=== PATIENT | female | born 1960 | race Caucasian/White ===

== ENCOUNTER 2016-10-24 15:32 | Observation (INO) | payer MEDICARE, OTHER ==
[~2016-10-24] VITALS: Ht 177.8 cm; Wt 49.9 kg
[~2016-10-24 15:32] MED LIST: ANTIVERT 25MG T25 MG PO; CATAPRES 0.1MG0.1 MG PO; COREG 12.5MG12.5 MG PO; LANTUS INS100 UTS/M1 SQ; LISINOPRIL20 MG PO; NEPRO CARB ST1000 ML PO; NEURONTIN 400400 MG PO; NORCO 5-325 TA1 EACH PO; NORVASC 5 MG TAB5 MG PO; PHOSLO 667 MG667 MG PO; PROCRIT10000 UNIT SC; QUESTRAN LIGHT 44 GM PO; RENVELA800 MG PO; VERAPAMIL ER120 M1 PO
[2016-10-24 16:42] LABS: HEMOGLOBIN 10.7 gm/dl (12.3-15.3); RED BLOOD COUNT 3.7 M/UL (4.00-5.10); WHITE BLOOD COUNT 5.7 K/UL (4.5-11.0)
[2016-10-24] MEDS ORDERED: LANTUS100 UNIT/1 SQ (23:23)
[2016-10-24] MEDS ORDERED: CATAPRES 0.1MG0.1 MG PO (23:23)
[2016-10-24] MEDS ORDERED: MECLIZINE HCL25 MG PO (23:30)
[2016-10-26 03:58] LABS: HEMOGLOBIN 9.3 gm/dl (12.3-15.3); WHITE BLOOD COUNT 6.5 K/UL (4.5-11.0)
[2016-10-26 04:01] LABS: RED BLOOD COUNT 3.24 M/UL (4.00-5.10)
[2016-10-26 09:57] LABS: HEMOGLOBIN 9.1 gm/dl (12.3-15.3); RED BLOOD COUNT 3.2 M/UL (4.00-5.10); WHITE BLOOD COUNT 5.7 K/UL (4.5-11.0)
[2016-10-27] MEDS ORDERED: ASPIR 8181 MG PO (10:12)
[2016-10-27] MEDS ORDERED: LIPITOR TAB 2020 MG PO (10:12)
[2016-10-27] MEDS ORDERED: PLAVIX 75 MG TA75 MG PO (10:16)
[2016-10-27] MEDS ORDERED: LISINOPRIL10 MG PO (10:17)
[2016-10-27] MEDS ORDERED: TOPROL XL25 MG PO (10:17)
[2016-10-27] MEDS ORDERED: NITROSTAT0.4 MG SL (10:20)
[2017-05-13] MEDS ORDERED: VOLTAREN100 GM TP (12:35)
[2017-05-17] MEDS ORDERED: LEVAQUIN250 MG PO (14:47)
== END 2016-10-27 11:50 | disposition home or self-care (01) ==
LOC: ER1 15:32 → ZEROF 20:08 → M/S 20:08 → CCU 10-25 20:39
PROVIDERS: Emergency Medicine; Internal Medicine; Internal Medicine Nephrology; ADMIT Hospitalist
DX: R07.9 Chest pain, unspecified (principal); E11.22 Type 2 diabetes mellitus with diabetic chronic kidney disease; I12.0 Hypertensive chronic kidney disease with stage 5 chronic kidney disease or end stage renal disease; N18.6 End stage renal disease; I25.10 Atherosclerotic heart disease of native coronary artery without angina pectoris; I25.2 Old myocardial infarction; Z87.891 Personal history of nicotine dependence; Z82.49 Family history of ischemic heart disease and other diseases of the circulatory system; Z80.0 Family history of malignant neoplasm of digestive organs; Z80.1 Family history of malignant neoplasm of trachea, bronchus and lung; Z88.8 Allergy status to other drugs, medicaments and biological substances; Z79.899 Other long term (current) drug therapy; Z99.2 Dependence on renal dialysis; Z90.49 Acquired absence of other specified parts of digestive tract; Z90.710 Acquired absence of both cervix and uterus; Z98.890 Other specified postprocedural states
CPT/HCPCS: 36415; 71010; 71250; 75625; 78452; 80048; 80053; 82550; 82553; 82962; 83605; 83735; 83874; 84132; 84484; 85025; 85027; 85347; 87040; 90935; 93005; 93017; 96374; 96375; 96376; 99285; A9502; C1725; C1769; C1874; C1887; C9600; G0257; G0378; J0360; J0461; J0583; J1644; J2250; J2405; J2785; J3010; J7030; J7040; Q9965

== ENCOUNTER 2016-11-30 05:49 | Inpatient (IN) | payer MEDICARE, OTHER ==
[~2016-11-30] VITALS: Ht 167.6 cm; Wt 51.7 kg
[~2016-11-30 05:49] MED LIST changes: +ASPIR 8181 MG PO; +LANTUS100 UNIT/1 SQ; +LIPITOR TAB 2020 MG PO; +LISINOPRIL10 MG PO; +MECLIZINE HCL25 MG PO; +NITROSTAT0.4 MG SL; +PLAVIX 75 MG TA75 MG PO; +TOPROL XL25 MG PO
[2016-11-30 06:50] LABS: HEMOGLOBIN 12.9 gm/dl (12.3-15.3); RED BLOOD COUNT 4.25 M/UL (4.00-5.10); WHITE BLOOD COUNT 10.2 K/UL (4.5-11.0)
[2016-11-30] MEDS ORDERED: NEURONTIN 400400 MG PO (14:39)
[2016-11-30] MEDS ORDERED: ZANAFLEX4 M1 PO (14:40)
[2016-11-30] MEDS ORDERED: ANTIVERT 25MG T25 MG PO (14:41)
[2016-11-30] MEDS ORDERED: CATAPRES 0.1MG0.1 MG PO (14:42)
[2016-11-30] MEDS ORDERED: FLEXERIL 10 MG10 MG PO (14:43)
[2016-11-30] MEDS ORDERED: PHENERGAN 25 MG25 M1 PO (14:43)
[2016-11-30] MEDS ORDERED: RENVELA800 MG PO (14:47)
[2016-12-01 05:17] LABS: WHITE BLOOD COUNT 9.4 K/UL (4.5-11.0)
[2016-12-01 05:18] LABS: HEMOGLOBIN 9.1 gm/dl (12.3-15.3); RED BLOOD COUNT 3.01 M/UL (4.00-5.10)
[2016-12-01 12:56] LABS: HEMOGLOBIN 9.6 gm/dl (12.3-15.3); RED BLOOD COUNT 3.18 M/UL (4.00-5.10); WHITE BLOOD COUNT 8.4 K/UL (4.5-11.0)
[2016-12-02 04:33] LABS: HEMOGLOBIN 9.4 gm/dl (12.3-15.3); RED BLOOD COUNT 3.14 M/UL (4.00-5.10); WHITE BLOOD COUNT 7.1 K/UL (4.5-11.0)
[2016-12-03 03:42] LABS: HEMOGLOBIN 10.4 gm/dl (12.3-15.3); RED BLOOD COUNT 3.45 M/UL (4.00-5.10); WHITE BLOOD COUNT 6.7 K/UL (4.5-11.0)
[2016-12-03] MEDS ORDERED: IMDUR ER TAB 3030 MG PO (16:35)
[2017-05-13] MEDS ORDERED: VOLTAREN100 GM TP (12:35)
[2017-05-17] MEDS ORDERED: LEVAQUIN250 MG PO (14:47)
== END 2016-12-03 17:40 | disposition home health service (06) | DRG 291 ==
LOC: ER1 05:49 → ZEROF 09:15 → PROG CARE 09:15
PROVIDERS: Family Medicine; Internal Medicine Nephrology; ADMIT Internal Medicine Infectious Disease
DX: I13.2 Hypertensive heart and chronic kidney disease with heart failure and with stage 5 chronic kidney disease, or end stage renal disease (principal); I50.33 Acute on chronic diastolic (congestive) heart failure; N18.6 End stage renal disease; J44.1 Chronic obstructive pulmonary disease with (acute) exacerbation; R07.9 Chest pain, unspecified; E11.22 Type 2 diabetes mellitus with diabetic chronic kidney disease; I25.10 Atherosclerotic heart disease of native coronary artery without angina pectoris; Z95.5 Presence of coronary angioplasty implant and graft; Z90.49 Acquired absence of other specified parts of digestive tract; Z90.710 Acquired absence of both cervix and uterus; Z88.5 Allergy status to narcotic agent; Z79.82 Long term (current) use of aspirin; Z79.02 Long term (current) use of antithrombotics/antiplatelets; Z79.4 Long term (current) use of insulin; Z79.899 Other long term (current) drug therapy; Z82.49 Family history of ischemic heart disease and other diseases of the circulatory system; Z80.0 Family history of malignant neoplasm of digestive organs; Z80.1 Family history of malignant neoplasm of trachea, bronchus and lung; Z80.42 Family history of malignant neoplasm of prostate; Z99.2 Dependence on renal dialysis; Z87.891 Personal history of nicotine dependence; E11.65 Type 2 diabetes mellitus with hyperglycemia; E11.21 Type 2 diabetes mellitus with diabetic nephropathy; D64.9 Anemia, unspecified; R74.8 Abnormal levels of other serum enzymes; I95.9 Hypotension, unspecified
CPT/HCPCS: 36415; 36600; 71010; 71020; 80048; 80053; 82550; 82553; 82607; 82728; 82803; 82962; 83540; 83550; 83690; 83735; 83874; 83880; 84100; 84484; 85025; 85027; 85610; 85730; 87040; 90935; 90937; 93005; 94640; 94660; 94664; 96374; 96375; 97116; 99291; J2930; J7030; Q4081

== ENCOUNTER 2017-01-02 14:46 | Inpatient (IN) | payer MEDICARE, OTHER ==
[~2017-01-02] VITALS: Ht 167.6 cm; Wt 50.3 kg
[~2017-01-02 14:46] MED LIST changes: +FLEXERIL 10 MG10 MG PO; +IMDUR ER TAB 3030 MG PO; +PHENERGAN 25 MG25 M1 PO; +ZANAFLEX4 M1 PO
[2017-01-02 15:31] LABS: HEMOGLOBIN 14.3 gm/dl (12.3-15.3); RED BLOOD COUNT 4.62 M/UL (4.00-5.10); WHITE BLOOD COUNT 6.1 K/UL (4.5-11.0)
[2017-01-02] MEDS ORDERED: ZANAFLEX 4 MG TA4 MG PO (21:45)
[2017-01-02] MEDS ORDERED: NEURONTIN 400400 MG PO (21:45)
[2017-01-02] MEDS ORDERED: ZANTAC 150 MG150 MG PO (21:45)
[2017-01-02] MEDS ORDERED: CATAPRES 0.1MG0.1 MG PO (21:46)
[2017-01-02] MEDS ORDERED: LIPITOR TAB 2020 MG PO (21:46)
[2017-01-02] MEDS ORDERED: PLAVIX 75 MG TA75 MG PO (21:46)
[2017-01-02] MEDS ORDERED: LISINOPRIL20 MG PO (21:47)
[2017-01-02] MEDS ORDERED: MECLIZINE HCL25 MG PO (21:47)
[2017-01-02] MEDS ORDERED: METOPROLOL SUCC25 MG PO (21:47)
[2017-01-03 06:07] LABS: WHITE BLOOD COUNT 5.6 K/UL (4.5-11.0)
[2017-01-03 15:34] LABS: HEMOGLOBIN 10.8 gm/dl (12.3-15.3)
[2017-01-04 03:30] LABS: HEMOGLOBIN 11.4 gm/dl (12.3-15.3); RED BLOOD COUNT 3.73 M/UL (4.00-5.10)
[2017-01-04 03:38] LABS: WHITE BLOOD COUNT 7.1 K/UL (4.5-11.0)
[2017-01-06 03:55] LABS: HEMOGLOBIN 10.6 gm/dl (12.3-15.3); RED BLOOD COUNT 3.48 M/UL (4.00-5.10)
[2017-01-08 12:16] LABS: HEMOGLOBIN 11.1 gm/dl (12.3-15.3); RED BLOOD COUNT 3.62 M/UL (4.00-5.10); WHITE BLOOD COUNT 6.8 K/UL (4.5-11.0)
[2017-01-08] MEDS ORDERED: RENVELA800 MG PO (13:40)
[2017-01-08] MEDS ORDERED: NORVASC 5 MG TAB5 MG PO (13:40)
[2017-01-08] MEDS ORDERED: LANTUS100 UNIT/1 SQ ×2 (13:45→13:48)
[2017-01-08] MEDS ORDERED: VENTOLIN/PROVE0.5 ML INH (13:47)
[2017-01-08] MEDS ORDERED: PHENERGAN 12.12.5 M1 PO (13:48)
[2017-01-08 22:14] LABS: HEMOGLOBIN 10.1 gm/dl (12.3-15.3); RED BLOOD COUNT 3.3 M/UL (4.00-5.10); WHITE BLOOD COUNT 5.4 K/UL (4.5-11.0)
--- NOTE | 2017-01-09 03:40 | NUR ---
2136- JUST TECH WAS GOING TO CHECK PTS BS FAMILY MEMBER MET HER IN HALLWAY AND STATED THAT PT FELT SWEATY. UPON ENTERING ROOM PT WAS UNRESPONSIVE TO AROUSAL AT WHICH TIME BS WAS CHECKED AND FOUND TO BE 23. 2 AMPS OF D50 WAS GAVE AT WHICH TIME PT WAS STILL ONLY RESPONSIVE TO STERNAL RUB WHICH TRIGGERED PT TO BE COMBATIVE. RECHECKS OF HER BS AT 2147 WAS 494,AT 2148 BS WAS 462, BS AT 2201 WAS 351, BS AT 2344 WAS 212, BS AT 0055 WAS 159, BS AT 0219 WAS 155 EVEN AFTER EATING A SANDWICH AND SMALL POP, BS AT 0330 WAS 184.SHERIFF SERGEANT CALLED AND MD AT BEDSIDE AROUND 2147 AND WROTE NEW ORDER FOR STAT BS BY LAB TO CONFIRM ACCURACY OF MACHINE,AFTER WHICH WROTE ORDERS FOR EKG,CBC, BMP, CT OF HEAD,HOLD CORRECTION UNTIL WE GET STEADY READING, NO COVERAGE THEN UNLESS BS IF OVER 200. ORDERS ALSO TO DECREASE LEVEMIR TO 15 UNITS SQ DAILY WITH MEAL, D/C PRANDIAL DOSE. BS CHECKS Q 1 HR FOR 4 HRS. AT 2344 PT TALKING TO ME AND ASKING WHAT HAD HAPPENED. PT AT THAT TIME WAS STILL DROWSY AND KNEW NAME AND BD BUT DID NOT KNOW WHERE SHE WAS AT AND STATED THAT SHE WAS AT DIALYSIS.
[2017-01-10 06:04] LABS: HEMOGLOBIN 10.9 gm/dl (12.3-15.3); RED BLOOD COUNT 3.61 M/UL (4.00-5.10); WHITE BLOOD COUNT 7.1 K/UL (4.5-11.0)
[2017-01-10] MEDS ORDERED: COZAAR100 MG PO (22:34)
[2017-01-10] MEDS ORDERED: NEPRO CARB ST1000 ML PO (22:35)
[2017-01-10] MEDS ORDERED: IMDUR ER TAB 3030 MG PO (22:35)
[2017-01-10] MEDS ORDERED: COREG 3.125M3.125 MG PO (22:36)
[2017-01-10] MEDS ORDERED: NORVASC 5 MG TAB5 MG PO (22:37)
[2017-01-10] MEDS ORDERED: ASPIR 8181 MG PO (22:37)
[2017-01-10] MEDS ORDERED: NOVOLOG 10100 UNITS/ SC (22:40)
[2017-05-13] MEDS ORDERED: VOLTAREN100 GM TP (12:35)
[2017-05-17] MEDS ORDERED: LEVAQUIN250 MG PO (14:47)
== END 2017-01-10 23:36 | disposition home or self-care (01) | DRG 682 ==
LOC: ER1 14:46 → ZEROF 18:47 → CCU 21:47 → M/S 01-05 08:30
PROVIDERS: Emergency Medicine; Hospitalist; Internal Medicine; Internal Medicine Nephrology; ADMIT Internal Medicine
PROC: 5A1D60Z (ICD-10-PCS; principal; 2017-01-06)
DX: N18.6 End stage renal disease (principal); I71.02 Dissection of abdominal aorta; G93.41 Metabolic encephalopathy; I13.2 Hypertensive heart and chronic kidney disease with heart failure and with stage 5 chronic kidney disease, or end stage renal disease; I50.32 Chronic diastolic (congestive) heart failure; N39.0 Urinary tract infection, site not specified; I16.0 Hypertensive urgency; Z99.2 Dependence on renal dialysis; Z87.891 Personal history of nicotine dependence; E10.22 Type 1 diabetes mellitus with diabetic chronic kidney disease; E10.649 Type 1 diabetes mellitus with hypoglycemia without coma; B96.20 Unspecified Escherichia coli [E. coli] as the cause of diseases classified elsewhere; I25.10 Atherosclerotic heart disease of native coronary artery without angina pectoris; J44.9 Chronic obstructive pulmonary disease, unspecified
CPT/HCPCS: ECHO; 36415; 70450; 70551; 71010; 71275; 80048; 80053; 80307; 82140; 82150; 82533; 82550; 82553; 82570; 82962; 83036; 83690; 83835; 83874; 84439; 84443; 84484; 85014; 85018; 85025; 85027; 85730; 87077; 87086; 87186; 90935; 90937; 93005; 93306; 94664; 97110; 97116; 97530; 99285; G0378; J0696; J1644; J2060; J2405; J7030; J7050; Q9963

== ENCOUNTER 2020-12-11 09:10 | Inpatient (IN) | payer MEDICARE, OTHER ==
[~2020-12-11] VITALS: Ht 167.6 cm; Wt 40.4 kg
[~2020-12-11 09:10] MED LIST changes: +AUGMENTIN 875-1 EACH PO; +BACTROBAN OINT22 GM EXT; +CARVEDILOL25 MG PO; +CLONIDINE1 EAC2 TD; +COMBIVENT0.074 GM/I INH; +COREG 25MG TAB25 MG PO; +COREG 3.125M3.125 MG PO; +COZAAR100 MG PO; +DOXYCYCLINE HY100 MG PO; +ECOTRIN81 MG PO; +FLONASE 0.05% N16 GM; +HYDRALAZINE HC100 MG PO; +HYDRALAZINE HCL25 MG PO; +HYDROCHLOROTHIA25 MG PO; +IPRAT-ALBUT 0.5-3 ML NEB; +KAOPECTATE262 MG/15 PO; +LEVAQUIN250 MG PO; +METOPROLOL SUCC25 MG PO; +NORVASC10 MG PO; +NOVOLOG 10100 UNITS/ SC; +PHENERGAN 12.12.5 M1 PO; +PROTONIX40 MG PO; +ROPINIROLE HCL0.5 MG PO; +TESSALON PERLE100 MG PO; +VENTOLIN/PROVE0.5 ML INH; +VIBRAMYCIN100 MG PO; +VOLTAREN100 GM TP; +ZANAFLEX 4 MG TA4 MG PO; +ZANTAC 150 MG150 MG PO; +ZOCOR10 MG PO
[2020-12-11] MEDS ORDERED: CLONIDINE HCL0.3 MG PO (09:47)
[2020-12-11 10:09] LABS: HEMOGLOBIN 10.5 gm/dl (12.3-15.3); RED BLOOD COUNT 3.61 M/UL (4.00-5.10); WHITE BLOOD COUNT 10.5 K/UL (4.5-11.0)
[2020-12-11] MEDS ORDERED: RENVELA800 MG PO (18:31)
[2020-12-11] MEDS ORDERED: IPRAT-ALBUT 0.5-3 ML NEB (20:15)
[2020-12-11] MEDS ORDERED: COZAAR100 MG PO (21:30)
[2020-12-11] MEDS ORDERED: BASAGLAR K100 UNIT/1 SQ (23:52)
[2020-12-12 02:52] LABS: HEMOGLOBIN 9.1 gm/dl (12.3-15.3)
[2020-12-12 02:58] LABS: RED BLOOD COUNT 3.14 M/UL (4.00-5.10)
[2020-12-13 04:24] LABS: RED BLOOD COUNT 3.45 M/UL (4.00-5.10); WHITE BLOOD COUNT 6.7 K/UL (4.5-11.0)
[2020-12-13] MEDS ORDERED: ROXANOL SO10 MG/5 ML PO (11:44)
[2020-12-13] MEDS ORDERED: ATIVAN0.5 MG PO (11:44)
[2020-12-14] MEDS ORDERED: ROPINIROLE HCL1 MG PO (16:59)
[2020-12-17 04:19] LABS: HEMOGLOBIN 10.3 gm/dl (12.3-15.3); RED BLOOD COUNT 3.59 M/UL (4.00-5.10); WHITE BLOOD COUNT 5.8 K/UL (4.5-11.0)
[2020-12-19] MEDS ORDERED: ATIVAN0.5 MG PO (13:25)
[2020-12-19] MEDS ORDERED: ROXANOL SO10 MG/5 ML PO (13:29)
--- NOTE | 2020-12-19 14:23 | NUR ---
REPORT TO [facility] CALLED AT 1344 ON 12/19/20. RN GIVEN REPORT AND AWARE OF PT CONDITION.
== END 2020-12-19 14:30 | DRG 180 ==
LOC: ER1 09:10 → CDU 12:04 → PROG CARE 12:04 → MED SURG 4 12:04 → PROG CARE 18:33 → MED SURG 4 12-12 18:31
PROVIDERS: Internal Medicine; Internal Medicine Nephrology; Internal Medicine Pulmonary Disease; Physician Assistant; ADMIT Internal Medicine
PROC: 5A1D70Z Performance of Urinary Filtration, Intermittent, Less than 6 Hours Per Day (ICD-10-PCS; principal; 2020-12-16)
DX: C34.90 Malignant neoplasm of unspecified part of unspecified bronchus or lung (principal); J18.9 Pneumonia, unspecified organism; Z20.822 Contact with and (suspected) exposure to COVID-19; J96.21 Acute and chronic respiratory failure with hypoxia; N18.6 End stage renal disease; Z51.5 Encounter for palliative care; Z66 Do not resuscitate; I50.43 Acute on chronic combined systolic (congestive) and diastolic (congestive) heart failure; G93.41 Metabolic encephalopathy; E43 Unspecified severe protein-calorie malnutrition; R64 Cachexia; J90 Pleural effusion, not elsewhere classified; I12.0 Hypertensive chronic kidney disease with stage 5 chronic kidney disease or end stage renal disease; N30.00 Acute cystitis without hematuria; Z68.1 Body mass index [BMI] 19.9 or less, adult; E86.0 Dehydration; F17.210 Nicotine dependence, cigarettes, uncomplicated; R11.0 Nausea; T40.425A Adverse effect of tramadol, initial encounter; I16.0 Hypertensive urgency; I25.10 Atherosclerotic heart disease of native coronary artery without angina pectoris; E87.6 Hypokalemia; Z96.642 Presence of left artificial hip joint; Z96.652 Presence of left artificial knee joint; D63.1 Anemia in chronic kidney disease; R53.81 Other malaise; J44.9 Chronic obstructive pulmonary disease, unspecified; Z99.2 Dependence on renal dialysis; Z85.43 Personal history of malignant neoplasm of ovary; Z95.5 Presence of coronary angioplasty implant and graft; Z86.73 Personal history of transient ischemic attack (TIA), and cerebral infarction without residual deficits; Z90.49 Acquired absence of other specified parts of digestive tract; Z90.710 Acquired absence of both cervix and uterus; Z88.6 Allergy status to analgesic agent; Z81.1 Family history of alcohol abuse and dependence; Z82.49 Family history of ischemic heart disease and other diseases of the circulatory system; Z83.3 Family history of diabetes mellitus; Z80.0 Family history of malignant neoplasm of digestive organs; Z79.4 Long term (current) use of insulin; I25.2 Old myocardial infarction
CPT/HCPCS: 36415; 36600; 70450; 71045; 71250; 80048; 80053; 81001; 82550; 82553; 82803; 82962; 83605; 83615; 83735; 83874; 84100; 84484; 85025; 85027; 86140; 87040; 87086; 90935; 90937; 92610; 93005; 94640; 94660; 94760; 96374; 96375; 99285; J0360; J1885; J2405; J2543; J7030; U0002

== ENCOUNTER 2021-01-24 16:05 | Emergency (ER) | payer MEDICARE, OTHER ==
[~2021-01-24 16:05] MED LIST changes: +ATIVAN0.5 MG PO; +BASAGLAR K100 UNIT/1 SQ; +CLONIDINE HCL0.3 MG PO; +ROPINIROLE HCL1 MG PO; +ROXANOL SO10 MG/5 ML PO
== END 2021-01-24 17:52 | disposition home or self-care (01) ==
LOC: ER1 16:05
DX: S50.02XA Contusion of left elbow, initial encounter (principal); S80.02XA Contusion of left knee, initial encounter; S20.229A Contusion of unspecified back wall of thorax, initial encounter; S80.12XA Contusion of left lower leg, initial encounter; J44.9 Chronic obstructive pulmonary disease, unspecified; I25.10 Atherosclerotic heart disease of native coronary artery without angina pectoris; I12.9 Hypertensive chronic kidney disease with stage 1 through stage 4 chronic kidney disease, or unspecified chronic kidney disease; N18.9 Chronic kidney disease, unspecified; W19.XXXA Unspecified fall, initial encounter
CPT/HCPCS: 72040; 72170; 73080; 73560; 99283

== ENCOUNTER 2021-05-25 16:17 | Emergency (ER) | payer MEDICARE, OTHER ==
[2021-05-25 18:34] LABS: HEMOGLOBIN 9.5 gm/dl (12.3-15.3); RED BLOOD COUNT 3.21 M/UL (4.00-5.10); WHITE BLOOD COUNT 9.5 K/UL (4.5-11.0)
[2021-05-25 19:11] LABS: BUN/CREATININE RATIO 7 (0-10)
== END 2021-05-25 19:50 | disposition home or self-care (01) ==
LOC: ER1 16:17
PROVIDERS: Preventive Medicine Occupational Medicine
DX: I12.9 Hypertensive chronic kidney disease with stage 1 through stage 4 chronic kidney disease, or unspecified chronic kidney disease (principal); N18.4 Chronic kidney disease, stage 4 (severe); Z99.2 Dependence on renal dialysis
CPT/HCPCS: 73502; 80053; 82550; 82553; 83874; 84484; 85025; 93005; 99284